=== PATIENT | female | born 2000 | race Caucasian/White ===

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

== ENCOUNTER 2019-05-03 16:46 | Outpatient (CLI) | payer OTHER | END 2019-05-03 16:47 | disposition home or self-care (01) | LOC: COV 16:46 | PROVIDERS: ATTEND Family Medicine | DX: R05 Cough (principal); R50.9 Fever, unspecified | CPT/HCPCS: 81599 ==